=== PATIENT | male | born 1960 | race Caucasian/White ===

== ENCOUNTER 2018-02-12 16:32 | Emergency (ER) | payer OTHER ==
[2018-02-12] MEDS ORDERED: predniSONE 20 MG TAB ONE (18:12)
== END 2018-02-12 18:21 | disposition home or self-care (01) ==
LOC: NAV ERS 16:32
DX: M25.532 Pain in left wrist (principal); I10 Essential (primary) hypertension; M10.9 Gout, unspecified; Z79.899 Other long term (current) drug therapy; Z79.82 Long term (current) use of aspirin
CPT/HCPCS: 99283; J7506